=== PATIENT | female | born 1950 | race Caucasian/White ===

== ENCOUNTER 2017-11-22 20:36 | Emergency (ER) ==
[2017-11-22 20:43] VITALS: BP 130/84; TEMP 98.7; BMI 28.3
[2017-11-22] MEDS ORDERED: DECADRON 4 MG/ML SDV IM STA (20:45)
--- NOTE | 2017-11-22 20:50 | ED.PDOC ---
General ED Provider: Dr. BE DEL ROSARIO Chief Complaint: Non-specific Complaint Stated Complaint: Started with scratchy throat, yesterday before getting in the flight from [place], Today she is been coughing, congested, getting yellow sputum. Right eye is red, matted. Time Seen by Physician: 20:48 Mode of Arrival: Walk-In Information Source: Patient Nursing and Triage Documentation Reviewed and Agree: Yes Reviewed sepsis parameters & appropriate labs ordered?: Yes System Inflammatory Response Syndrome: Not Applicable Sepsis Protocol: For patient's 13 years and over: Temp is 96.8 and below OR 101 and greater Pulse >90 BPM Resp >20/minute Acutely Altered Mental Status Are patient's symptoms suggestive of a new infection, such as: -Pneumonia -Skin, Soft Tissue -Endocarditis -UTI -Bone, Joint Infection -Implantable Device -Acute Abdominal Infection -Wound Infection -Meningitis -Blood Stream Catheter Infection -Unknown Respiratory Complaint Exam - Respiratory Complaint/Exam Symptoms Are: Still present Timing: Constant Initial Severity: Mild Current Severity: Mild Location: Chest Character: Reports: Productive cough Aggravating: Reports: URI Alleviating: Reports: None Associated Signs and Symptoms: Reports: URI, Nasal congestion. Denies: Rapid breathing, Dyspnea, Fever, Chills, Chest pain, Pleuritic chest pain, Wheezing, Hemoptysis, Dizziness, Calf pain, Calf swelling, Edema, Hoarseness, Sinus discomfort, Vomiting, Sore throat, Weight loss, Decreased oral intake, Increased thirst, Increased appetite, Increased urination History of Healthcare-Acquired Pneumonia: No Related Surgical History: Reports: None Pulmonary Embolism Risk Factors: None Cardiac Risk Factors: Reports: None Pseudomonas Risk Factors: Reports: None Tuberculosis Risk Factors: Reports: None Status Asthmaticus Risk Factors: Reports: None Home Oxygen Use: No Recent Stress Test: No Recent Echo/LV Function: No Current Antibiotic Use: No Current Asthma Medication Use: No Respiratory Distress: None Inadequate Respiratory Effort: No Dysphagia Present: No Stridor Present: No JVD Present: No Accessory Muscle Use: No Retractions: Not Present Diminished Breath Sounds: No Sinus Tenderness: None Grunting Respirations: No Kussmaul Respirations: No Differential Diagnoses: Bronchitis, URI Review of Systems - Review Of Systems Constitutional: Reports: No symptoms Eyes: Reports: Drainage, Inflammation Ears, Nose, Mouth, Throat: Reports: Throat pain Respiratory: Reports: No symptoms, Cough Cardiac: Reports: No symptoms GI: Reports: No symptoms : Reports: No symptoms Musculoskeletal: Reports: No symptoms Skin: Reports: No symptoms Neurological: Reports: No symptoms Endocrine: Reports: No symptoms Hematologic/Lymphatic: Reports: No symptoms All Other Systems: Reviewed and Negative Past Medical History - Past Medical History Previously Healthy: Yes Endocrine: Reports: Dyslipidemia Cardiovascular: Reports: Hypertension, Other (heart murmur) Respiratory: Reports: None Hematological: Reports: None Gastrointestinal: Reports: None Genitourinary: Reports: None Neuro/Psych: Reports: None Musculoskeletal: Reports: None Cancer: Reports: None Last Menstrual Period: NONE - Surgical History General Surgical History: Reports: Hysterectomy - Family History Family History: Reports: None - Social History Smoking Status: Never smoker Hx Substance Use: No Alcohol Screening: None - Immunizations Tetanus Shot up to Date: Yes Physical Exam - Physical Exam Appearance: Well-appearing, No pain distress, Well-nourished Eyes: ARTIS, EOMI, Conjunctiva inflammed (matted.) ENT: Ears normal, Nose normal, Oropharynx normal Respiratory: Airway patent, Breath sounds clear, Breath sounds equal, Respirations nonlabored Cardiovascular: RRR, Pulses normal, No rub, Murmur GI/: Soft, Nontender, No masses, Bowel sounds normal, No Organomegaly Musculoskeletal: Normal strength, ROM intact, No edema, No calf tenderness Skin: Warm, Dry, Normal color Neurological: Sensation intact, Motor intact, Reflexes intact, Cranial nerves intact, Alert, Oriented Psychiatric: Affect appropriate, Mood appropriate Critical Care Note - Critical Care Note Total Time (mins): 20 Course - Course Orders, Labs, Meds: Orders Category Date Time Status Dexamethasone 4 mg/ml Inj [Decadron 4 mg/ml Sdv] MEDS 11/22/17 20:45 Discontinued 4 mg IM ONCE STA Medications Discontinued Medications Generic Name Dose Route Start Last Admin Trade Name Freq PRN Reason Stop Dose Admin Dexamethasone Sodium Phosphate 4 mg 11/22/17 20:45 Decadron 4 Mg/Ml Sdv IM 11/22/17 20:46 ONCE STA Vital Signs: Temp Pulse Resp BP Pulse Ox 11/22/17 20:37 98.7 F 82 15 130/84 96 Departure - Departure Time of Disposition: 20:58 Disposition: HOME SELF-CARE Discharge Problem: URTI (acute upper respiratory infection) Conjunctivitis Qualifiers: Conjunctivitis type: acute Acute conjunctivitis type: bacterial Laterality: right Qualified Code(s): H10.31 - Unspecified acute conjunctivitis, right eye Instructions: Upper Respiratory Infection (ED) Condition: Stable Pt referred to PMD for follow-up: Yes IPMP verified?: No Additional Instructions: Cipro can give bad tendinitis reactions, Take medication with food Increase Hydration Prescriptions: Ciprofloxacin HCl [Cipro] 250 mg PO Q12HR #14 tablet Neomycin/Polymyxin B/Dexametha [Iiiubl-Eugsu-Eldgdohh Eye Drop] 5 ml OP TID #1 vial Prednisone 10 mg PO BIDWM #14 tablet Allergies/Adverse Reactions: Allergies erythromycin base Adverse Reaction (Verified 11/22/17 20:41) latex Adverse Reaction (Verified 11/22/17 20:41) Latex, Natural Rubber Adverse Reaction (Verified 11/22/17 20:41) Penicillins Adverse Reaction (Verified 11/22/17 20:41) Sulfa (Sulfonamide Antibiotics) Adverse Reaction (Verified 11/22/17 20:41) Home Medications: Ambulatory Orders Ciprofloxacin HCl [Cipro] 250 mg PO Q12HR #14 tablet 11/22/17 Neomycin/Polymyxin B/Dexametha [Ksgjkf-Idujl-Acdiprgu Eye Drop] 5 ml OP TID #1 vial 11/22/17 Prednisone 10 mg PO BIDWM #14 tablet 11/22/17 Disposition Discussed With: Patient
== END 2017-11-22 21:08 | disposition home or self-care (01) ==
LOC: ED 20:36
DX: J06.9 Acute upper respiratory infection, unspecified (principal); H10.31 Unspecified acute conjunctivitis, right eye
CPT/HCPCS: 96372; 99282